=== PATIENT | female | born 1960 | race Native Hawaiian/Other Pacific Islander ===

== ENCOUNTER 2019-02-05 12:38 | Inpatient (IN) | payer MEDICAID, OTHER ==
[2019-02-04] MEDS: POTASSIUM CHL 20MEQ/100ML 100 ML IV SCH (00:12)
[~2019-02-05] VITALS: Ht 157.5 cm; Wt 96.5 kg
[2019-02-05] MEDS ORDERED: SODIUM CHLORIDE 0.9% 500 ML IVB ONE (13:09)
[2019-02-05] MEDS ORDERED: ONDANSETRON HCL 4 MG/2 ML VIAL IV ONE (13:15)
[2019-02-05] MEDS ORDERED: HYDROmorphone HCL 2 MG/ML VL IV ONE (13:15)
[2019-02-05 13:28] LABS: Basophils # (auto) 0.1 uL; Basophils % (auto) 0.9 % (0.0-2.0); Eosinophils # (auto) 0.1 uL; Eosinophils % (auto) 0.9 % (0.0-7.0); Hematocrit 39.2 % (36.0-46.0); Hemoglobin 13.5 g/dL (12.2-16.2); Lymphocytes % (auto) 22.7 % (10.0-50.0); Mean Corpuscular Hemoglobin 31.5 pg (28.0-32.0); Mean Corpuscular Hgb Conc. 34.5 g/dL (32.0-36.0); Mean Corpuscular Volume 91.3 fL (80.0-100.0); Monocytes # (auto) 0.6 uL; Monocytes % (auto) 6.8 % (0.0-12.0); Neutrophils % (auto) 68.7 % (37.0-80.0); Platelet Count (auto) 271 10^3/uL (140-450); Red Blood Cells 4.29 10^6/uL (4.0-5.20); Red Cell Distribution Width 15.5 % (11.8-14.3); White Blood Cell 8.7 10^3/uL (4.4-10.8)
[2019-02-05 13:48] LABS: Albumin 3.4 g/dL (3.4-5.0); Anion Gap 9 (5-15); Blood Urea Nitrogen 21 mg/dL (7-18); Calcium 8.8 mg/dL (8.5-10.1); Carbon Dioxide 26 mmol/L (21-32); Chloride 102 mmol/L (98-107); Glucose 122 mg/dL (74-106); Potassium 3.2 mmol/L (3.5-5.1); Sodium 137 mmol/L (136-145)
[2019-02-05 13:49] LABS: Magnesium 2.2 mg/dL (1.6-2.6)
[2019-02-05 13:53] LABS: Alanine Aminotransferase 17 U/L (13-56); Alkaline Phosphatase 68 U/L (45-117); Aspartate Aminotransferase 13 U/L (15-37); BUN/Creatinine Ratio 20.6; Bilirubin, Total 0.4 mg/dL (0.2-1.0); GFR African American 72 mL/min; GFR Non-African American 59 mL/min; INR 0.99 (0.9-1.15); Partial Thromboplastin Time 24.8 sec (23.64-32.05); Total Protein 7.9 g/dL (6.4-8.2)
[2019-02-05 17:24] LABS: Urine Bacteria NONE SEEN /hpf (None Seen); Urine Blood TRACE /uL (Negative); Urine Specific Gravity 1.013 (1.001-1.035); Urine WBC 1 /hpf (0 - 5)
[2019-02-05] MEDS ORDERED: cefTRIAXone 1GM/50ML D5W 50 ML IV ONE (17:30)
[2019-02-05] MEDS ORDERED: NITROGLYCERIN 0.4 MG SL TAB SL PRN (17:30)
[2019-02-05] MEDS ORDERED: MORPHINE SULF INJ 2 MG/ML SYRINGE 1ML IV PRN (17:30)
[2019-02-05] MEDS ORDERED: PROMETHAZINE HCL 25 MG/ML 1ML IV PRN (17:30)
[2019-02-05] MEDS ORDERED: GASTROGRAFIN 120 ML SOL ONE (17:38)
[2019-02-05] MEDS ORDERED: FAMOTIDINE (10MG/ML) 2ML VL IV ONE (18:45)
[2019-02-05] MEDS: SODIUM CHLORIDE 0.9% 1,000 ML IV SCH (19:18)
[2019-02-05] MEDS: MORPHINE SULF INJ 2 MG/ML SYRINGE 1ML IV PRN ×2 (19:36→23:42)
[2019-02-05] MEDS: POTASSIUM CHL 20MEQ/100ML 100 ML IV SCH (19:40)
--- NOTE | 2019-02-05 20:00 | NUR ---
OPENING NOTE RECEIVED PATIENT FROM ER. NO REPORT RECEIVED. ASSUMING ROLE OF CARE OF PATIENT AT THIS TIME. PATIENT SHOWING NO SIGN OF DISTRESS, SHORTNESS OF BREATH, AND PATIENT STATES PAIN IS 8/10. WILL MEDICATE PER PAIN PROTOCOL WHEN AVAILABLE. PATIENT EDUCATED ON PLAN OF CARE FOR THE NIGHT AND PATIENT VERBALIZED UNDERSTANDING. BED LOWERED, CALL LIGHT WITHIN REACH, AND PATIENT WILL BE ROUNDED ON EVERY HOUR AND NEEDED.
[2019-02-05] MEDS ORDERED: ATOR40TA52 PO (20:23)
[2019-02-05] MEDS ORDERED: POTA-180 PO (20:23)
[2019-02-05] MEDS ORDERED: HYDR12.56 PO (20:23)
[2019-02-05] MEDS ORDERED: LEVO200T7 PO (20:23)
[2019-02-05] MEDS ORDERED: FERR-20 PO (20:23)
[2019-02-05] MEDS ORDERED: TRAZ-220 PO (20:23)
[2019-02-05] MEDS ORDERED: RIVA20TA PO (20:23)
[2019-02-05] MEDS ORDERED: RIVAROXABAN 20 MG TAB PO ONE (21:15)
[2019-02-05 22:00] VITALS: BP 148/89
--- NOTE | 2019-02-05 22:00 | NUR ---
HOSPITALIST PAGED PATIENT REFUSING NG TUBE AT THIS TIME AND REQUESTING TO BE SEDATED. HOSPITALIST INFORMED. PATIENT WILL NOT BE SEDATED BUT CAN BE GIVEN ATIVAN. WILL ATTEMPT TO PLACE NG TUBE WHEN AVAILABLE.
[2019-02-05] MEDS: metroNIDAZOLE 500MG/100ML 100 ML IV SCH (22:25)
[2019-02-05] MEDS ORDERED: LORazepam 2MG/ML-1ML VIAL IV PRN (22:30)
--- NOTE | 2019-02-06 | NUR ---
CXR PERFORMED AWAITING RESULTS TO CONFIRM PLACEMENT OF NG TUBE.
--- NOTE | 2019-02-06 02:40 | NUR ---
PLACEMENT CONFIRMED CXR CONFIRMED PLACEMENT. PATIENT PLACED ON LIS SUCTION.
[2019-02-06] MEDS: SODIUM CHLORIDE 0.9% 1,000 ML IV SCH (03:21)
[2019-02-06 05:00] VITALS: BP 156/86
[2019-02-06] MEDS: MORPHINE SULF INJ 2 MG/ML SYRINGE 1ML IV PRN ×3 (05:02→14:15)
[2019-02-06] MEDS: metroNIDAZOLE 500MG/100ML 100 ML IV SCH ×2 (06:46→14:07)
[2019-02-06 07:17] LABS: Calcium 8.5 mg/dL (8.5-10.1); Potassium 3.5 mmol/L (3.5-5.1)
[2019-02-06 07:23] LABS: BUN/Creatinine Ratio 19.8; Bilirubin, Total 0.6 mg/dL (0.2-1.0); Total Protein 6.9 g/dL (6.4-8.2)
[2019-02-06 08:00] VITALS: BP 125/80
--- NOTE | 2019-02-06 08:10 | NUR ---
PT SEEN BY DR. CARROLL, HE SAID PT CAN HAVE CLEAR LIQUID.
--- NOTE | 2019-02-06 08:30 | NUR ---
NGT REMOVED ORDERED BY DR. CARROLL
[2019-02-06] MEDS ORDERED: cefTRIAXone 1GM/50ML D5W 50 ML IV SCH (09:00)
[2019-02-06] MEDS ORDERED: FAMOTIDINE (10MG/ML) 2ML VL IV SCH (10:00)
[2019-02-06 13:00] VITALS: BP 148/80
--- NOTE | 2019-02-06 17:00 | NUR ---
PT SEEN BY DR. DÍAZ, HE SAID PT CAN GO HOME.
[2019-02-06 17:59] VITALS: BP 148/80
[2019-02-06] MEDS ORDERED: RIVAROXABAN 20 MG TAB PO SCH (18:00)
--- NOTE | 2019-02-06 18:20 | NUR ---
Discharge instructions given as ordered. Encourage to follow up with DR. MUSA IN 1 WEEK, PT WILL MAKE HER OWN APPOINTMENT, OFFICE IS CLOSE. All questions and concerns addressed. Patient verbalized understanding. Medication reconciliation form completed and copy given to patient. IV removed with catheter intact, pressure dressing applied. Telemetry unit returned to ICU. Patient taken to vehicle via wheelchair with all personal belongings, accompanied by staff and family member. No distress noted at time of departure.
== END 2019-02-06 18:20 | disposition home or self-care (01) | DRG 247 ==
LOC: ER 12:38 → TELE 12:39 → TELE-WESTW 19:48
PROVIDERS: ADMIT Internal Medicine; ATTEND Hospitalist
DX: K56.600 Partial intestinal obstruction, unspecified as to cause (principal); E03.9 Hypothyroidism, unspecified; E87.6 Hypokalemia; R73.9 Hyperglycemia, unspecified; I25.10 Atherosclerotic heart disease of native coronary artery without angina pectoris; I10 Essential (primary) hypertension; I25.2 Old myocardial infarction; Z86.711 Personal history of pulmonary embolism; Z90.49 Acquired absence of other specified parts of digestive tract; Z93.3 Colostomy status
CPT/HCPCS: 36415; 71045; 74176; 74250; 80053; 81001; 82150; 83690; 83735; 84484; 85025; 85610; 85730; 93005; 94761; 96361; 96365; 96375; G0378; J0696; J2405; J3480; J3490